=== PATIENT | male | born 1950 | race Caucasian/White ===

== ENCOUNTER 2021-01-13 14:11 | Emergency (ER) | payer OTHER ==
[~2021-01-13] VITALS: Ht 182.9 cm; Wt 90.7 kg
[2021-01-13] MEDS ORDERED: ALPRAZOLAM XR3 MG PO (14:21)
[2021-01-13 14:42] LABS: ABSOLUTE BASOPHILS 0.1 thou/uL (0.0-0.2); ABSOLUTE EOSINOPHILS 0.1 thou/uL (0.0-0.7); ABSOLUTE MONOCYTES 0.7 thou/uL (0.0-1.2); ABSOLUTE NEUTROPHILS 2.8 thou/uL (1.6-8.1); EOSINOPHILS 2.2 %; HEMATOCRIT 37.8 % (42.0-52.0); HEMOGLOBIN 12.6 gm/dL (14.0-18.0); MCH 31.1 pg (26.0-34.0); MCHC 33.4 g/dL (28.0-37.0); MONOCYTES 10.4 %; NUCLEATED RBCS 0 /100WBC; PLATELET COUNT* 174 thou/uL (150-400); POLYS 41.4 %; RBC 4.06 mil/uL (4.50-6.00); WBC 6.7 thou/uL (4.0-11.0)
[2021-01-13 14:55] LABS: CALCIUM 8.7 mg/dL (8.5-10.1); CREATININE 1.6 mg/dL (0.6-1.3); POTASSIUM 3.9 mmol/L (3.5-5.1)
[2021-01-13 14:59] LABS: ALBUMIN 3.5 g/dL (3.4-5.0); TOTAL BILIRUBIN 0.3 mg/dL (<0.1-1.0); TOTAL PROTEIN 6.9 g/dL (6.4-8.2)
--- NOTE | 2021-01-13 15:23 | EKG ---
[place] [address] ELECTROCARDIOGRAM REPORT Name: JOSUE PAIZ Room: [facility]#: [id number] Admission: 01/13/21 Attend Phys: Discharge: Date of : 50 Date of Service: 01/13/21 1420 Report #: [id number] THIS REPORT FOR: //name// [facility] ED Test Date: 2021-01-13 Test Time: 14:20:09 Pat Name: JOSUE PAIZ Department: Room: Gender: Electrical Machinist: : 1950 Requested By: Dexter Kathleen Order Number: [id number] MD: Seth Irvin Measurements Intervals [place] Rate: 45 P: -4 GA: 191 QRS: 15 QRSD: 99 T: 49 QT: 506 QTc: 438 Interpretive Statements Sinus bradycardia septal q waves Borderline T wave abnormalities No previous ECG available for comparison Electronically Signed On 01-13-2021 15:23:28 CDT by Seth Irvin [email or web address] <ELECTRONICALLY SIGNED> By: Seth Irvin MD, [facility] 01/13/21 1523 1420 1420 Seth Irvin MD, [facility] /EPI
[2021-01-13 15:48] VITALS: BP 135/65
== END 2021-01-13 15:49 | disposition home or self-care (01) ==
LOC: M.ERS 14:11
PROVIDERS: Family Medicine
DX: R42 Dizziness and giddiness (principal); R53.83 Other fatigue; Z79.899 Other long term (current) drug therapy